=== PATIENT | female | born 1985 | race Two or more races ===

== ENCOUNTER 2023-07-19 15:41 | Day surgery (SDC) | payer OTHER ==
[2023-07-19 16:18] LABS: HEMATOCRIT 41.4 % (36.0-45.00); HEMOGLOBIN 14.2 g/dL (12.0-15.00); MEAN CELL VOLUME 90.4 fL (80.00-100.00); MEAN CORPUSCULAR HGB CONC 34.3 g/dl (32.0-36.0); PLATELET COUNT 268 K/uL (150-450); RED BLOOD COUNT 4.58 M/uL (4.00-6.00)
[2023-07-19 16:28] LABS: INR 0.98; PARTIAL THROMBOPLASTIN TIME 27.9 SECONDS (22.0-34.0); PROTHROMBIN TIME 10.3 SECONDS (9.0-11.5)
== END 2023-07-20 00:40 | disposition home or self-care (01) ==
LOC: CIR.AMB 15:41
PROVIDERS: ATTEND Obstetrics & Gynecology Maternal & Fetal Medicine
DX: O02.1 Missed abortion (principal); O72.2 Delayed and secondary postpartum hemorrhage; Z20.822 Contact with and (suspected) exposure to COVID-19

== ENCOUNTER 2023-08-13 12:49 | Emergency (ER) | payer OTHER ==
[~2023-08-13] VITALS: Ht 165.1 cm; Wt 65.8 kg
[2023-08-13 15:45] LABS: HEMOGLOBIN 14.4 g/dL (12.0-15.00); MEAN CELL VOLUME 91.5 fL (80.00-100.00); MEAN CORPUSCULAR HEMOGLOBIN 31.4 pg (27.00-32.0); MEAN CORPUSCULAR HGB CONC 34.3 g/dl (32.0-36.0); PLATELET COUNT 310 K/uL (150-450); RED BLOOD COUNT 4.59 M/uL (4.00-6.00); RED CELL DISTRIBUTION WIDTH 13.4 % (11.5-14.5)
[2023-08-13] MEDS ORDERED: ZITHROMAX500 MG PO (16:55)
[2023-08-13] MEDS ORDERED: LEVALBUTER1.25 MG/3 IH (16:55)
[2023-08-13] MEDS ORDERED: TUSSIN DM LIQU118 ML PO (16:55)
[2023-08-13] MEDS ORDERED: IPRATROPIU0.2 MG/1 M IH (16:55)
== END 2023-08-13 17:07 | disposition home or self-care (01) ==
LOC: ER 12:49
PROVIDERS: Nurse Practitioner Family
DX: J06.9 Acute upper respiratory infection, unspecified (principal); R05.9 Cough, unspecified; Z20.822 Contact with and (suspected) exposure to COVID-19

== ENCOUNTER 2024-08-25 14:46 | Emergency (ER) | payer OTHER ==
[~2024-08-25] VITALS: Ht 165.1 cm; Wt 73.5 kg
[~2024-08-25 14:46] MED LIST: IPRATROPIU0.2 MG/1 M IH; LEVALBUTER1.25 MG/3 IH; TUSSIN DM LIQU118 ML PO; ZITHROMAX500 MG PO
[2024-08-25] MEDS ORDERED: DIALYVITE 8001 EAC1 PO (15:34)
[2024-08-25] MEDS ORDERED: ACETAMINOPHEN 500 MG GEL..CAP PO ONE ×2 (19:15→19:21)
[2024-08-25 19:28] LABS: HEMATOCRIT 37.4 % (36.0-45.00); HEMOGLOBIN 12.7 g/dL (12.0-15.00); MEAN CELL VOLUME 88.7 fL (80.00-100.00); MEAN CORPUSCULAR HEMOGLOBIN 30.1 pg (27.00-32.0); MEAN CORPUSCULAR HGB CONC 33.9 g/dl (32.0-36.0); PLATELET COUNT 170 K/uL (150-450); RED BLOOD COUNT 4.21 M/uL (4.00-6.00)
[2024-08-25 19:32] LABS: RED CELL DISTRIBUTION WIDTH 16.3 % (11.5-14.5)
[2024-08-25] MEDS ORDERED: ACETAMINOPHEN500 M1 PO (20:24)
[2024-08-25] MEDS ORDERED: GILTUSS HONEY118 ML PO (20:24)
[2024-08-25] MEDS ORDERED: PAXLOVID 150-11 EAC1 PO (20:24)
== END 2024-08-25 20:32 | disposition home or self-care (01) ==
LOC: ER 14:48
PROVIDERS: Preventive Medicine Public Health & General Preventive Medicine
DX: O98.513 Other viral diseases complicating pregnancy, third trimester (principal); U07.1 COVID-19; J00 Acute nasopharyngitis [common cold]

== ENCOUNTER 2024-09-24 10:57 | Outpatient (CLI) | payer OTHER ==
[~2024-09-24 10:57] MED LIST changes: +ACETAMINOPHEN500 M1 PO; +DIALYVITE 8001 EAC1 PO; +GILTUSS HONEY118 ML PO; +PAXLOVID 150-11 EAC1 PO
[2024-09-24] MEDS ORDERED: PRENATAL CAPLE1 EAC1 PO (13:17)
== END 2024-09-24 12:30 | disposition still patient (30) ==
LOC: NST 10:57
PROVIDERS: ATTEND Obstetrics & Gynecology Maternal & Fetal Medicine
DX: Z3A.38 38 weeks gestation of pregnancy (principal)

== ENCOUNTER 2024-09-24 12:31 | Outpatient (CLI) | payer OTHER ==
[~2024-09-24] VITALS: Ht 165.1 cm; Wt 75.3 kg
[2024-09-24 11:37] VITALS: BP 110/74
[2024-09-24] MEDS ORDERED: RINGERS SOLUTION,LACTATED 1,000 ML IV SCH (13:00)
[2024-09-24] MEDS ORDERED: PRENATAL CAPLE1 EAC1 PO (13:17)
[2024-09-24 13:49] LABS: HEMATOCRIT 38.9 % (36.0-45.00); MEAN CELL VOLUME 88.7 fL (80.00-100.00); MEAN CORPUSCULAR HEMOGLOBIN 29.6 pg (27.00-32.0); MEAN CORPUSCULAR HGB CONC 33.3 g/dl (32.0-36.0); PLATELET COUNT 166 K/uL (150-450); RED BLOOD COUNT 4.38 M/uL (4.00-6.00); RED CELL DISTRIBUTION WIDTH 17.2 % (11.5-14.5)
[2024-09-24 14:12] LABS: INR < 0.93; PARTIAL THROMBOPLASTIN TIME 29.1 SECONDS (22.0-34.0); PROTHROMBIN TIME 10.1 SECONDS (9.0-11.5)
[2024-09-24 14:30] LABS: ALBUMIN 2.4 gm/dL (3.4-5.0); BILIRUBIN TOTAL 0.33 mg/dL (0.3-1.2); CALCIUM 8.8 mg/dL (8.5-10.1); CREATININE SERUM 0.62 mg/dL (0.55-1.02); GFR 108.91; GLOBULINA 3.6 G/DL (2.4-3.5); POTASSIUM 4.1 mEq/L (3.5-5.1)
[2024-09-24 15:24] VITALS: BP 120/78
[2024-09-24 19:08] VITALS: BP 106/73
[2024-09-24 23:06] VITALS: BP 105/70
[2024-09-25 04:01] VITALS: BP 103/70
[2024-09-25 07:01] VITALS: BP 110/76; O2SAT 98
[2024-09-25] MEDS ORDERED: OXYTOCIN 500 ML IV ONE (08:00)
== END 2024-09-25 10:12 | disposition home or self-care (01) ==
LOC: OBS/DEL 12:31 → LDR 12:31 → OBS/DEL 09-25 10:12 → EDSTATUS 09-25 13:00
PROVIDERS: Obstetrics & Gynecology; ATTEND Obstetrics & Gynecology Maternal & Fetal Medicine
DX: O26.893 Other specified pregnancy related conditions, third trimester (principal); O36.8330 Maternal care for abnormalities of the fetal heart rate or rhythm, third trimester, not applicable or unspecified; Z3A.38 38 weeks gestation of pregnancy; R10.2 Pelvic and perineal pain

== ENCOUNTER 2024-10-01 15:00 | Inpatient (IN) | payer OTHER ==
[~2024-10-01] VITALS: Ht 165.1 cm; Wt 76.7 kg
[~2024-10-01 15:00] MED LIST changes: +PRENATAL CAPLE1 EAC1 PO
[2024-10-02 00:15] VITALS: BP 117/74
[2024-10-02] MEDS ORDERED: AMPICILLIN SODIUM 1,000 MG VIAL IV SCH ×2 (00:48→04:00)
[2024-10-02] MEDS ORDERED: IRON236 MG (00:55)
[2024-10-02] MEDS ORDERED: AMPICILLIN SODIUM 2,000 MG VIAL IV ONE (01:00)
[2024-10-02] MEDS ORDERED: RINGERS SOLUTION,LACTATED 1,000 ML IV SCH ×2 (01:00→19:30)
[2024-10-02 01:47] LABS: HEMATOCRIT 37.5 % (36.0-45.00); HEMOGLOBIN 12.8 g/dL (12.0-15.00); MEAN CELL VOLUME 88.1 fL (80.00-100.00); PLATELET COUNT 163 K/uL (150-450); RED BLOOD COUNT 4.26 M/uL (4.00-6.00); RED CELL DISTRIBUTION WIDTH 17.6 % (11.5-14.5)
[2024-10-02 02:06] LABS: INR < 0.93; PARTIAL THROMBOPLASTIN TIME 29.7 SECONDS (22.0-34.0); PROTHROMBIN TIME 10.2 SECONDS (9.0-11.5)
[2024-10-02 02:10] LABS: ALBUMIN 2.4 gm/dL (3.4-5.0); BILIRUBIN TOTAL 0.25 mg/dL (0.3-1.2); CALCIUM 9.2 mg/dL (8.5-10.1); CREATININE SERUM 0.62 mg/dL (0.55-1.02); GFR 108.91; GLOBULINA 3.4 G/DL (2.4-3.5); POTASSIUM 4.92 mEq/L (3.5-5.1); TOTAL PROTEIN 5.8 gm/dL (6.4-8.2)
[2024-10-02 04:20] VITALS: BP 119/70
[2024-10-02] MEDS ORDERED: OXYTOCIN 500 ML IV ONE (07:00)
[2024-10-02 08:08] VITALS: BP 116/77
[2024-10-02 12:03] VITALS: BP 123/78
[2024-10-02] MEDS ORDERED: MORPHINE SULFATE 4 MG/ML VIAL IV ONE ×3 (13:15→23:35)
[2024-10-02 15:24] VITALS: BP 134/77
[2024-10-02] MEDS ORDERED: ERYTHROMYCIN BASE OPHT 1GM EACH TUBE OP ONE (17:16)
[2024-10-02] MEDS ORDERED: OXYTOCIN 10 UNITS/ML VIAL ONE (17:16)
[2024-10-02] MEDS ORDERED: MORPHINE SULFATE 4 MG/ML CARTRIDGE IV PRN (19:30)
[2024-10-02] MEDS ORDERED: OXYTOCIN 1,000 ML IV ONE (19:30)
[2024-10-02] MEDS ORDERED: CEFAZOLIN SODIUM 1,000 MG VIAL ONE (19:34)
[2024-10-02] MEDS ORDERED: KETOROLAC TROMETHAMINE 30 MG VIAL IV SCH (20:00)
[2024-10-02] MEDS ORDERED: CEFAZOLIN SODIUM 1,000 MG VIAL IV SCH (21:30)
[2024-10-03] MEDS ORDERED: ONDANSETRON HCL 2 MG/ML VIAL IV SCH
[2024-10-03] MEDS ORDERED: ACETAMINOPHEN 500 MG GEL..CAP PO SCH
[2024-10-03] MEDS ORDERED: KETOROLAC TROMETHAMINE 30 MG VIAL ONE (00:52)
[2024-10-03] MEDS ORDERED: AMPICILLIN SODIUM 1,000 MG VIAL ONE (00:52)
[2024-10-03] MEDS ORDERED: GABAPENTIN 300 MG CAPSULE PO SCH (01:00)
[2024-10-03] MEDS ORDERED: KETOROLAC TROMETHAMINE 30 MG VIAL IV ONE (01:00)
[2024-10-03] MEDS ORDERED: SIMETHICONE 125 MG CAPSULE PO SCH (01:00)
[2024-10-03 02:33] VITALS: BP 108/66
[2024-10-03 06:32] LABS: HEMOGLOBIN 12.1 g/dL (12.0-15.00); MEAN CELL VOLUME 88.1 fL (80.00-100.00); MEAN CORPUSCULAR HEMOGLOBIN 29.5 pg (27.00-32.0); MEAN CORPUSCULAR HGB CONC 33.5 g/dl (32.0-36.0); PLATELET COUNT 152 K/uL (150-450); RED BLOOD COUNT 4.09 M/uL (4.00-6.00); RED CELL DISTRIBUTION WIDTH 17.1 % (11.5-14.5)
[2024-10-03] MEDS ORDERED: KETOROLAC TROMETHAMINE 10 MG TABLET PO SCH (08:00)
[2024-10-03] MEDS ORDERED: OxyCODONE HCL 5 MG TABLET (ROXICODONE) PO PRN (08:00)
[2024-10-03 08:09] VITALS: BP 106/69
[2024-10-03] MEDS ORDERED: DOCUSATE SODIUM 100MG CAP PO SCH (09:00)
[2024-10-03 16:00] VITALS: BP 118/81
[2024-10-03 20:00] VITALS: BP 100/65
[2024-10-04 01:43] VITALS: BP 96/63
[2024-10-04 08:00] VITALS: BP 122/81
== END 2024-10-04 15:14 | disposition home or self-care (01) | DRG 788 ==
LOC: LDR 10-02 00:29 → OB/GYN 10-02 21:32
PROVIDERS: ADMIT Obstetrics & Gynecology; ATTEND Obstetrics & Gynecology
PROC: 4A1HXCZ Monitoring of Products of Conception, Cardiac Rate, External Approach (ICD-10-PCS; 2024-10-02)
PROC: 10D00Z1 Extraction of Products of Conception, Low, Open Approach (ICD-10-PCS; principal; 2024-10-02 17:30)
DX: O82 Encounter for cesarean delivery without indication (principal); O62.0 Primary inadequate contractions; O33.8 Maternal care for disproportion of other origin; Z3A.40 40 weeks gestation of pregnancy; Z37.0 Single live birth